=== PATIENT | male | born 1980 | race Caucasian/White ===

== ENCOUNTER → 2016-12-24 | Outpatient (CLI) | payer BC ==
--- NOTE | 2016-12-24 11:33 | Diagnostic Imaging Report ---
INDICATION: Left testicular pain. COMPARISON: None. DISCUSSION: Sonographic evaluation of the scrotum was performed. The testicles appear normal and symmetric in echotexture and size bilaterally with normal color and spectral Doppler blood flow. The right testicle measures 3.9 x 2.7 x 3.1 cm. Left testicle measures 4.8 x 2.5 x 2.5 cm. Incidental note of a benign right epididymal cyst measuring 5 mm. The epididymides are otherwise unremarkable. No hydrocele or varicocele. The scrotal wall is unremarkable. IMPRESSION: 1. Unremarkable scrotal ultrasound. Dictated by: Dictated on workstation # [id number]
== END ==
LOC: RAD 10:28
PROVIDERS: ATTEND Family Medicine
DX: N50.812 Left testicular pain (principal)
CPT/HCPCS: 76870